=== PATIENT | male | born 1960 | race African-American/Black ===

== ENCOUNTER 2017-05-19 18:36 | Observation (INO) | payer OTHER ==
[~2017-05-19] VITALS: Ht 180.3 cm; Wt 70.6 kg
--- NOTE | 2017-05-19 00:18 | NUR ---
GABBY POSADA IN ROOM WITH PT TAKING VITALS. PT HAS NO COMPLAINT OF PAIN. RESP EVEN AND UNLABORED. IV PATENT. CALL LIGHT WITHIN REACH.
--- NOTE | 2017-05-19 18:38 | NUR ---
TO TX ROOM. C/O CHEST PRESSTURE SINCE 1499.
--- NOTE | 2017-05-19 18:40 | NUR ---
PT STATES HE TOOK ASPRIN 81MG PO PRIOR TO ARRIVAL. ALSO, PT HAS HAD 2 FAMILY DEATHS WITHIN THE MONTH. ALERT. COOPERATIVE.
[2017-05-19] MEDS ORDERED: BENAZEPRIL5 MG PO (18:58)
--- NOTE | 2017-05-19 19:00 | NUR ---
PT REPORT FROM ASVANNAH DOW, PT RESTING, NO CHANGE IN STATUS, PT REMAINS STABLE. CALL LIGHT WITHIN REACH
[2017-05-19 19:11] LABS: HEMATOCRIT 39.6 % (39.0-50.0); HEMOGLOBIN 12.6 g/dl (14.0-18.0); IMMATURE GRANULOCYTES 0.4 % (0.0-1.0); MEAN CELL VOLUME 84.6 fL CALC (80.0-100.0); MEAN CORPUSCULAR HGB 26.9 pG CALC (26.0-32.0); MEAN CORPUSCULAR HGB CONC 31.8 g/L CALC (32.0-36.0); NEUT# 2.34 thou/uL (1.82-7.42); RED BLOOD COUNT 4.68 mill/uL (4.70-6.10); RED CELL DISTRI WIDTH 13.2 % (11.5-15.5)
--- NOTE | 2017-05-19 19:15 | NUR ---
MD AT BEDSIDE FOR EVALUATION
[2017-05-19 19:26] LABS: ALBUMIN 4.5 g/dL (3.2-5.0); ALKALINE PHOSPHATASE 61 u/l (38-126); BILIRUBIN, TOTAL 0.3 mg/dL (0.0-1.4); BUN 19 mg/dL (9-20); BUN/CREATININE RATIO 16 (12-20 (CALC)); CALCIUM 10.1 mg/dL (8.4-10.2); CARBON DIOXIDE 27 mmol/l (22-30); CHLORIDE 105 mmol/l (95-108); CREATININE 1.2 mg/dL (0.7-1.3); GFR > 60 ML/MIN (>=60 (CALC)); GFR FOR AFR.AMER. > 60 ML/MIN (>=60 (CALC)); GLUCOSE 115 mg/dL (75-110); SGOT/AST 21 u/l (17-59); SGPT/ALT 33 u/l (21-72); SODIUM 144 mmol/l (137-146); TOTAL PROTEIN 7.8 g/dL (6.3-8.2)
[2017-05-19 19:28] LABS: ANION GAP 16 (6-22 (CALC)); POTASSIUM 3.8 mmol/l (3.5-5.1)
--- NOTE | 2017-05-19 19:36 | NUR ---
PT RESTING, DENIES ANY CHANGE IN STATUS. PT REMAINS STABLE.
[2017-05-19 19:38] LABS: MYOGLOBIN 53 ng/mL (0 - 121)
--- NOTE | 2017-05-19 19:59 | NUR ---
PT MEDICATED WITH 243 MG OF BABY ASA, PT TOOK OWN 81 MG ASA CLINICAL AIDE.
--- NOTE | 2017-05-19 20:15 | NUR ---
PT RESTING WITH NO DISTRESS AT THIS TIME. PLAN OF CARE DISCUSSED WITH PT, DENIES ANY QUESTIONS UPON COMPLETION.
--- NOTE | 2017-05-19 21:23 | NUR ---
REPORT TO FELIPE JONES, DENIES ANY QUESTIONS UPON COMPLETION. PT DENIES ANY CHANGE IN STATUS.
[2017-05-19 21:30] VITALS: BP 119/77
--- NOTE | 2017-05-19 21:30 | NUR ---
PT ON FLOOR WITH ELISA FROM ER VIA WHEELCHAIR. PT ORIENTED TO ROOM AND CALL LIGHT SYSTEM. SAFETY PRECAUTIONS IN PLACE. TELE IN PLACE. IV PATENT. PT HAS NO COMPLAINTS OF PAIN AT THIS TIME. RESP EVEN AND UNLABORED. WILL CONTINUE TO MONITOR.
[2017-05-19 21:50] LABS: URINE BILIRUBIN - DIPSTICK NEGATIVE (NEGATIVE); URINE BLOOD DIPSTICK NEGATIVE (NEGATIVE); URINE COLOR YELLOW; URINE GLUCOSE - DIPSTICK NEGATIVE (NEGATIVE); URINE KETONE NEGATIVE (NEGATIVE); URINE LEUK ESTERASE NEGATIVE (NEGATIVE); URINE NITRITE - DIPSTICK NEGATIVE (Negative); URINE PROTEIN - DIPSTICK NEGATIVE (NEG-TRACE); URINE UROBILINOGEN - DIPSTICK 0.2 E.U./dL (0.2)
[2017-05-19 21:52] LABS: URINE CLARITY CLEAR
[2017-05-20 00:18] VITALS: BP 94/60
[2017-05-20 03:25] VITALS: BP 91/58
[2017-05-20 06:41] LABS: CHOLESTEROL HDL RATIO 5.3 (<4.4 (CALC))
--- NOTE | 2017-05-20 07:40 | NUR ---
SHIFT CHANGE REPORT FROM CODY, PT SLEEPING BUT RESPONDS TO VERBAL STIMULI, DENIES PAIN AT THIS TIME, TELE MONITOR IN PLACE, CALL BISHOP IN REACH.
[2017-05-20 08:11] VITALS: BP 95/64
--- NOTE | 2017-05-20 12:00 | NUR ---
SPOUSE VISITING WITH PT, HE STATED HE WANTS TO GO HOME, CAN DRAGGER NOTIFIED, DR MASTERSON ROUNDED AND WROTE ORDERS.
[2017-05-20 12:44] VITALS: BP 113/70
[2017-05-20] MEDS ORDERED: ASPIRIN CHEWABL81 MG PO (13:04)
--- NOTE | 2017-05-20 13:49 | NUR ---
Discharge instructions given. Patient verbalizes understanding of same. Discharged in good condition via Wheelchair to Home with spouse. All belongings sent with pt.
== END 2017-05-20 13:50 | disposition home or self-care (01) | DRG 313 ==
LOC: ED 18:36 → ED-I 19:40 → ED 20:30 → MS2 20:31
PROVIDERS: Emergency Medicine; ADMIT Internal Medicine; ATTEND Internal Medicine
DX: R07.89 Other chest pain (principal); D64.9 Anemia, unspecified; E78.5 Hyperlipidemia, unspecified; I10 Essential (primary) hypertension
CPT/HCPCS: G0378